=== PATIENT | female | born 1995 | race Caucasian/White ===

== ENCOUNTER 2017-10-05 20:10 | Outpatient (CLI) | payer OTHER ==
[2017-10-05 21:07] VITALS: BP 134/82; PULSE 96; RESP 15; TEMP 98.3
--- NOTE | 2017-10-06 06:22 | P.MSEPDOC ---
Presenting Problems - Arrival Data Date of Arrival on Unit: 10/05/17 Time of Arrival on Unit: 20:10 Mode of Transport: Wheelchair - Complaint OB-Reason for Admission/Chief Complaint: Possible Onset of Labor Comment: pt states contractions started at 1730 and they are 5 mins apart Medical History - Information : 1 Para: 0 Term: 0 : 0 Abortions: Spontaneous or Elective: 0 Number of Living Children: 0 - Gestational Age Gestational Age by ANANYA (wks/days): 37 Weeks and 5 Days Review of Systems - Review of Systems Constitutional: No problems Breast: No problems ENT: No problems Cardiovascular: No problems Respiratory: No problems Gastrointestinal: No problems Genitourinary: No problems Musculoskeletal: No problems Neurological: No problems Skin: No problems Vital Signs - Temperature Temperature: 98.3 F Temperature Source: Temporal Artery Scan - Pulse Pulse Oximetery Pulse Rate: 96 Pulse Assessment Method: Pulse Oximetry - Respirations Respiratory Rate: 15 Oxygen Delivery Method: Room Air O2 Sat by Pulse Oximetry: 98 - Blood Pressure Right Arm Blood Pressure: 134/82 Blood Pressure Mean: 99 Blood Pressure Source: Automatic Cuff Medical Screen Scoring (Pre) - Cervical Exam Dilation: 1-3 cm = 1 Membranes: Intact - Uterine Contractions Frequency: > 5 minutes apart = 1 Duration: N/A Intensity: N/A - Maternal Vital Signs Maternal Temperature: N/A Maternal Blood Pressure: N/A Signs of Preeclampsia: N/A Maternal Respirations: N/A - Pain Assessment Pain Location and Character: Abdomen Pain Scale Used: Numeric (1 - 10) Pain Intensity: 5 Pain Management Goal: 2 Pain Description: *Acute, Cramping Pain Radiation Location: none Pain Frequency: Intermittent Pain Duration: 5 Pain Duration Units: Hours Pain Aggravating Factors: Contractions - Maternal Trauma Maternal Trauma: N/A - Assessment Baseline FHR: 145 Heart Rate - NICHD Category: Category I (Normal) = 0 NST: Reactive Position: N/A Station: N/A - Total Score Total Score (Pre): 2 - Level of Risk Level of Risk: Low (0-5) Physician Notification (Pre) - Physician Notified Physician Notified Date: 10/05/17 Physician Notified Time: 20:59 Disposition - Disposition OB Disposition: Discharge to home Discharge Date: 10/05/17 Discharge Time: 21:07 I agree with the RN Medical Screening Exam: Yes Risk & Benefit of care provided described in d/c instruction: Yes Diagnosis: FALSE LABOR AT OR AFTER 37 COMPLETED WEEKS OF GESTATION
== END 2017-10-05 21:09 | disposition home or self-care (01) ==
LOC: FBPOP 20:10
PROVIDERS: ATTEND Obstetrics & Gynecology
DX: O47.1 False labor at or after 37 completed weeks of gestation (principal); Z3A.37 37 weeks gestation of pregnancy
CPT/HCPCS: 59025; G0463; 99213

== ENCOUNTER 2017-10-20 06:06 | Inpatient (IN) | payer OTHER ==
[2017-10-20] MEDS: LACTATED RINGERS 1,000 ML IV SCH ×2 (06:20→12:55)
[2017-10-20] MEDS ORDERED: OXYTOCIN 20 UNITS/1000 ML NS 1,000 ML IV SCH ×2 (06:21→19:30)
[2017-10-20] MEDS ORDERED: CARBOPROST TROMETHAMINE 250 MCG/ML 1 ML AMP IM PRN (06:21)
[2017-10-20] MEDS ORDERED: METHYLERGONOVINE 0.2 MG/ML 1 ML AMP IM PRN (06:21)
[2017-10-20] MEDS ORDERED: TERBUTALINE 1 MG/ML VIAL SQ PRN (06:21)
[2017-10-20] MEDS ORDERED: LIDOCAINE 1% (PF) 10 MG/ML (30 ML SDV) SQ PRN (06:21)
[2017-10-20] MEDS ORDERED: OXYTOCIN 10 UNIT/ML 1 ML VIAL IM PRN (06:21)
--- NOTE | 2017-10-20 06:34 | P.HPOB ---
History of Present Illness H&P Date: 10/20/17 Chief Complaint: Patient is requesting induction of labor. This patient is a pleasant 22-year-old 1 para 0 female estimated date of confinement 10/21/2017 estimated gestational age 39-6/7 weeks who presents to labor and delivery for requested induction of labor. Patient's has been uncomplicated but we have been following growth for large for gestational age. Most recent ultrasound was on Tuesday showed a beta be 8 lbs. 5 oz. patient's requested induction for this reasoning. Review of Systems Constitutional: Denies chills, Denies fever Gastrointestinal: Reports heartburn Genitourinary: Reports Menstruation: Reports amenorrhea Past Medical History Past Medical History: No Reported History History of Any Multi-Drug Resistant Organisms: None Reported Past Surgical History: Adenoidectomy Past Anesthesia/Blood Transfusion Reactions: No Reported Reaction Past Psychological History: No Psychological Hx Reported Smoking Status: Former smoker Past Alcohol Use History: None Reported Past Drug Use History: None Reported Medications and Allergies Home Medications Medication Instructions Recorded Confirmed Type Pnv No.95/Ferrous Fum/Folic AC 1 each PO DAILY 10/05/17 10/20/17 History [ Multivitamin Tablet] Allergies Allergy/AdvReac Type Severity Reaction Status Date / Time No Known Allergies Allergy Verified 10/20/17 06:20 Exam Intake and Output 10/19/17 10/19/17 10/20/17 14:59 22:59 06:59 Other: Weight 102.965 kg - OBG Physical Exam Abdomen: bowel sounds normal, no diffuse tenderness, no bruit present, no guarding noted, no hepatomegaly, no splenomegaly, no mass Vulva: both: normal Vagina: normal moisture, no discharge Cervix: no lesion (Cervix is 2-3 cm, thick, soft, -2 station.), no discharge Uterus: enlarged (Fundal height consistent with term gestation) Results blood work shows she is A positive, rubella immune, RPR nonreactive, hepatitis B negative, HIV nonreactive, Glucola was 137 with a normal three-hour gtt., group B strep was negative, ultrasounds on Tuesday showed the baby to be 8 lbs. 5 oz. Assessment and Plan Assessment: This is a pleasant 22-year-old 1 para 0 female 39-6/7 weeks gestation who is admitted to labor and delivery for requested induction of labor secondary to large for gestational age. Plan at this time is induction of labor and anticipate vaginal delivery. (1) Third trimester Current Visit: Yes Status: Acute Code(s): Z34.93 - ENCNTR FOR SUPRVSN OF NORMAL PREG, UNSP, THIRD TRIMESTER SNOMED Code(s): 25198213 (2) Elective induction of labor planned Current Visit: Yes Status: Acute Code(s): DGG1803 - SNOMED Code(s): 290938642
[2017-10-20 06:40] LABS: Basophils % (A) 0 %; Eosinophils # (A) 0.2 k/uL (0-0.7); Eosinophils % (A) 2 %; HCT 31.4 % (34.0-46.0); HGB 10.6 gm/dL (11.4-16.0); Lymphocytes # (A) 1.5 k/uL (1.0-4.8); Lymphocytes % (A) 16 %; MCHC 33.9 g/dL (31.0-37.0); MCV 82.7 fL (80.0-100.0); Mean Platelet Volume 7.9; Monocytes # (A) 0.4 k/uL (0-1.0); Monocytes % (A) 5 %; Neutrophils # (A) 7.2 k/uL (1.3-7.7); Neutrophils % (A) 76 %; Platelet Count 227 k/uL (150-450); RBC 3.79 m/uL (3.80-5.40); RDW 14.7 % (11.5-15.5); WBC 9.5 k/uL (3.8-10.6)
[2017-10-20 07:00] VITALS: BMI 35.5
[2017-10-20] MEDS ORDERED: fentaNYL (PF) 50 MCG/ML 5 ML AMP ONE (12:36)
[2017-10-20] MEDS ORDERED: SODIUM CHLORIDE 0.9% 100 ML BAG ONE (12:36)
[2017-10-20] MEDS ORDERED: ROPIVACAINE 5MG/ML 20ML VIAL ONE (12:36)
[2017-10-20] MEDS ORDERED: CITRIC ACID-SODIUM CITRATE 15 ML CUP PO ONE (18:10)
[2017-10-20] MEDS ORDERED: ceFAZolin IN SWFI 2 GM/20 ML SYRINGE IVP ONE (18:10)
--- NOTE | 2017-10-20 18:16 | P.PN ---
Progress Note - Text Progress Note Date: 10/20/17 heart tones are reactive. Serial cervical exams show patient is dilated to 6-7 cm but no descent of the head. Patient I discussed previous in the office that if her labor did seem to stall out a bit more the baby was not fitting properly we will proceed with section due to concern for size. At this point we are going to proceed with delivery by section. Patient I discussed her procedure and risks. All questions are answered and a written consent obtained.
[2017-10-20] MEDS ORDERED: OXYTOCIN 10 UNIT/ML 1 ML VIAL ONE (18:33)
[2017-10-20] MEDS ORDERED: HYDROmorphone (PF) 1 MG/ML ONE (18:33)
[2017-10-20] MEDS ORDERED: KETOROLAC 30 MG/ML 1 ML VIAL ONE (18:33)
[2017-10-20] MEDS ORDERED: ONDANSETRON 4 MG/2 ML VIAL ONE (18:33)
[2017-10-20] MEDS ORDERED: diphenhydrAMINE 50 MG/ML 1 ML VIAL IVP PRN ×2 (19:06→19:20)
[2017-10-20] MEDS ORDERED: NALOXONE 0.4 MG/ML 1 ML VIAL IV PRN (19:06)
[2017-10-20] MEDS ORDERED: ONDANSETRON 4 MG/2 ML VIAL IVP PRN (19:06)
[2017-10-20] MEDS ORDERED: MORPHINE SULFATE 4 MG/ML SYRINGE IVP PRN (19:06)
--- NOTE | 2017-10-20 19:19 | P.OP ---
Date of Procedure: 10/20/17 Preoperative Diagnosis: #1: 39-6/7 week . #2: Failed induction of labor/failure to descend.: #3: Large for gestational age. Postoperative Diagnosis: #1: Same. #2: Occiput posterior presentation. Procedure(s) Performed: Primary low transverse section Anesthesia: spinal Surgeon: Mario José Sulfur Chloride Operator #1: Te Rachel Estimated Blood Loss (ml): 800 Pathology: none sent Condition: stable Disposition: floor Indications for Procedure: Please see dictated H&P for intimate details of this patient's admission. Brief summary this is a pleasant 22-year-old 1 para 0 female 39-6/7 weeks gestation who is admitted to labor and delivery for induction of labor secondary to concern for large for gestational age. Patient is 2-3 cm dilated has artificial rupture membranes for clear fluid. Labor is induced with Pitocin per protocol. Patient does get an epidural for pain control. Patient does progress to approximately 6-7 cm however there is no descent past -2 station. This time she night previously discussed concern for possible macrosomia/large for gestational age at this time we plan to proceed with section for delivery. Patient does understand the surgery and risks including risks of infection, bleeding, possible injury bowel, bladder, vessels , and/or other organs. Patient understands the risk of DVT and pulmonary embolism. All the patient's questions are answered and a written consent is obtained. Operative Findings: This is a vigorous viable male Apgars 8 and 9 delivery time is 1849 hrs. was left occiput posterior presentation with a double nuchal cord. Description of Procedure: This patient has a Shrestha catheter placed to straight drain. She is subsequently taken to the operating room where her epidural is dosed up for sufficient level of surgery. At this time she has abdominal prep and drape. Scalpels then taken and a Pfannenstiel skin incision is then made. A second scalpel is taken down the fascia the fascia scored with a knife. Fascial incision extended bilaterally using the Alonzo scissors. Fascia is then dissected sharply off the rectus muscles. Rectus muscles are the peritoneum identified and entered sharply. Peritoneal incision extended superior and inferior without difficulty. Bladder blade is then placed. Bladder peritoneum was taken sharply off the lower uterine segment. Scalpels and taken low transverse uterine incision is then made. Using a hemostat I into the uterine cavity bluntly and there is loss of clear fluid. This incision is extended bluntly. 's head is thought to be left occiput posterior presentation and delivered through the incision with fundal pressure. Mouth and nares are bulb suctioned. Nuchal cord is reduced and it is 2. We then have delivery anterior posterior shoulder and rest this infant's body. This is a vigorous viable male infant Apgars are 8 and 9 delivery time is 1849 hrs. After delivery of the the umbilical cords doubly clamped and cut and appears to be trivascular. Placenta is then manually extracted intact. Uterus is then externalized and uterine incision demarcated with Amador clamps. Uterine incision then closed using 0 Vicryl running locked fashion 2 layers. Excellent hemostasis is noted. The excess fluid is removed from the abdomen and pelvis. Uterus tubes and ovaries appear normal for term gestation. This done the uterus is placed back into the abdomen. Parietal peritoneum was then closed using 0 Vicryl running fashion. Rectus muscles reapproximated Vicryl interrupted fashion. Fascia is then closed using 0 PDS. Fascial incision is intact and hemostatic. Subcutaneous tissues and closed using a 3-0 Vicryl. Skin is and closed using mackenzie. All counts are correct 3. There are no complications. and mother are stable in their birthing room.
[2017-10-20] MEDS ORDERED: METOCLOPRAMIDE 5 MG/ML 2 ML VIAL IVP PRN (19:20)
[2017-10-20] MEDS ORDERED: ACETAMINOPHEN TAB 325 MG TAB PO PRN (19:20)
[2017-10-20] MEDS ORDERED: diphenhydrAMINE 25 MG CAP PO PRN (19:20)
[2017-10-20] MEDS ORDERED: SIMETHICONE 80 MG CHEWABLE PO PRN (19:20)
[2017-10-20] MEDS: ceFAZolin IN SWFI 2 GM/20 ML SYRINGE IVP SCH (23:41)
[2017-10-21] MEDS: KETOROLAC 30 MG/ML 1 ML VIAL IVP PRN ×2 (03:37→13:27)
--- NOTE | 2017-10-21 06:12 | P.PNOBGPC ---
Subjective - Subjective Patient reports: Reports appetite normal, Reports voiding normally, Reports pain well controlled, Reports ambulating normally : doing well Objective - Vital Signs Latest vital signs: Vital Signs Temp Pulse Resp BP Pulse Ox 10/21/17 02:00 16 10/21/17 00:06 99 10/21/17 00:00 99.7 F H 94 16 123/66 99 10/20/17 22:06 16 10/20/17 21:15 95 16 139/78 10/20/17 20:45 102 H 16 136/75 10/20/17 20:15 103 H 16 149/80 99 10/20/17 20:06 17 100 10/20/17 20:00 96 15 153/72 99 10/20/17 19:45 101 H 16 123/59 10/20/17 19:30 99 16 106/49 99 10/20/17 19:15 98 F 90 16 104/51 97 10/20/17 19:06 16 99 10/20/17 06:20 97.8 F 94 16 130/83 Intake and Output 10/20/17 10/20/17 10/21/17 14:59 22:59 06:59 Output Total 1300 800 Balance -1300 -800 Output: Urine 500 800 Estimated Blood Loss 800 Other: Voiding Method Indwelling Catheter Indwelling Catheter - Exam Lungs: bilateral: normal Chest: Normal S1, Normal S2 Extremities: Present: normal Abdomen: Present: normal appearance, soft. Absent: distention, tenderness Incision: Present: normal, dry, intact Uterus: Present: normal, firm - Labs Labs: Abnormal Lab Results - Last 24 Hours (Table) 10/20/17 Range/Units 06:15 RBC 3.79 L (3.80-5.40) m/uL Hgb 10.6 L (11.4-16.0) gm/dL Hct 31.4 L (34.0-46.0) % Assessment and Plan Assessment: Post operative day #1. Patient is resting without complaints. Vital signs are stable she's afebrile. Uterus is firm nontender and her incision is intact and dry. My impression is this is a normal postoperative course. Plan is to discontinue her Shrestha catheter, advance her diet, check a CBC, encourage ambulation, allow the patient to shower. (1) Third trimester Current Visit: Yes Status: Acute Code(s): Z34.93 - ENCNTR FOR SUPRVSN OF NORMAL PREG, UNSP, THIRD TRIMESTER SNOMED Code(s): 14951263 (2) Elective induction of labor planned Current Visit: Yes Status: Acute Code(s): CFW0677 - SNOMED Code(s): 529784930
[2017-10-21 09:10] LABS: Basophils % (A) 0 %; Eosinophils # (A) 0.1 k/uL (0-0.7); Eosinophils % (A) 1 %; HCT 27.5 % (34.0-46.0); Lymphocytes # (A) 1.2 k/uL (1.0-4.8); Lymphocytes % (A) 13 %; MCH 27.6 pg (25.0-35.0); MCV 83.8 fL (80.0-100.0); Monocytes # (A) 0.4 k/uL (0-1.0); Monocytes % (A) 5 %; Neutrophils # (A) 7.7 k/uL (1.3-7.7); Neutrophils % (A) 80 %; Platelet Count 193 k/uL (150-450); RBC 3.28 m/uL (3.80-5.40); RDW 14.8 % (11.5-15.5); WBC 9.5 k/uL (3.8-10.6)
[2017-10-21 09:14] LABS: HGB 9.1 gm/dL (11.4-16.0)
[2017-10-21] MEDS: SENNOSIDES-DOCUSATE SODIUM 1 EACH TAB PO SCH ×3 (09:20→22:01)
--- NOTE | 2017-10-21 10:04 | P.PN ---
Progress Note - Text Progress Note Date: 10/21/17 Postoperative day 1 status post section under regional anesthesia, and epidural morphine given for postoperative analgesia, patient doing well, there is no anesthesia related complications, Patient had no headache, vital signs stable , Assessment and plan= postop day 1 status post , doing well there is no anesthesia related complication.
[2017-10-21] MEDS: LACTATED RINGERS 1,000 ML IV SCH ×2 (21:16→21:17)
[2017-10-21] MEDS: ceFAZolin IN SWFI 2 GM/20 ML SYRINGE IVP SCH (21:16)
[2017-10-21] MEDS: HYDROcodone/APAP 5-325MG 1 EACH TAB PO PRN (22:01)
[2017-10-22] MEDS: HYDROcodone/APAP 5-325MG 1 EACH TAB PO PRN ×2 (03:32→11:55)
[2017-10-22] MEDS: SENNOSIDES-DOCUSATE SODIUM 1 EACH TAB PO SCH (08:07)
[2017-10-22] MEDS: IBUPROFEN 600 MG TAB PO PRN ×2 (08:08)
[2017-10-22 08:28] VITALS: BP 109/64; PULSE 91; RESP 14; TEMP 98.5
--- NOTE | 2017-10-26 18:11 | P.DS ---
Providers Date of admission: 10/20/17 06:06 Expected date of discharge: 10/22/17 Attending physician: Mario José - Discharge Diagnosis(es) (1) Third trimester Status: Acute (2) Elective induction of labor planned Status: Acute Hospital Course: Please see dictated H&P for intimate details of this patient's admission. Brief summary this is a 22-year-old female admitted to labor and delivery for elective induction of labor. Patient's subsequent on have a primary low transverse section. Please see dictated operative note. Postoperative and 2 patient's felt be stable for discharge home follow up with me in 1 week. Patient Condition at Discharge: Good Plan - Discharge Summary New Discharge Prescriptions: New HYDROcodone/APAP 5-325MG [[place] 5-325] 1 each PO Q4HR PRN #18 tab PRN Reason: Moderate Pain Ibuprofen [Motrin] 600 mg PO Q6HR PRN #40 tab PRN Reason: Mild Pain Or Fever >= 100.5 No Action Pnv No.95/Ferrous Fum/Folic AC [ Multivitamin Tablet] 1 each PO DAILY Discharge Medication List Pnv No.95/Ferrous Fum/Folic AC [ Multivitamin Tablet] 1 each PO DAILY [History] HYDROcodone/APAP 5-325MG [[place] 5-325] 1 each PO Q4HR PRN #18 tab 10/22/17 [Rx] Ibuprofen [Motrin] 600 mg PO Q6HR PRN #40 tab 10/22/17 [Rx] Follow up Appointment(s)/Referral(s): Mario José MD [STAFF PHYSICIAN] - 1 Week (Please call my office to schedule appointment in approximately 1 week for an incision check.) Patient Instructions/Handouts: (DC) Activity/Diet/Wound Care/Special Instructions: No heavy lifting or strenuous activity for 6 weeks. No intercourse or anything per vagina for 6 weeks. Please call if any fever, chills, excessive vaginal bleeding, and/or abdominal pain. Discharge Disposition: HOME SELF-CARE
== END 2017-10-22 14:32 | disposition home or self-care (01) | DRG 766 ==
LOC: 4FBP 06:06
PROVIDERS: ADMIT Obstetrics & Gynecology; ATTEND Obstetrics & Gynecology
PROC: 3E0R3NZ Introduction of Analgesics, Hypnotics, Sedatives into Spinal Canal, Percutaneous Approach (ICD-10-PCS; principal; 2017-10-20 18:44)
PROC: 3E033VJ Introduction of Other Hormone into Peripheral Vein, Percutaneous Approach (ICD-10-PCS; principal; 2017-10-20 18:44)
PROC: 10907ZC Drainage of Amniotic Fluid, Therapeutic from Products of Conception, Via Natural or Artificial Opening (ICD-10-PCS; principal; 2017-10-20 18:44)
PROC: 10D00Z1 Extraction of Products of Conception, Low, Open Approach (ICD-10-PCS; principal; 2017-10-20 18:44)
PROC: 00HU33Z Insertion of Infusion Device into Spinal Canal, Percutaneous Approach (ICD-10-PCS; principal; 2017-10-20 18:44)
DX: O36.63X0 Maternal care for excessive fetal growth, third trimester, not applicable or unspecified (principal); Z37.0 Single live birth; O69.81X0 Labor and delivery complicated by cord around neck, without compression, not applicable or unspecified; O61.9 Failed induction of labor, unspecified; O32.4XX0 Maternal care for high head at term, not applicable or unspecified; Z3A.39 39 weeks gestation of pregnancy; Z87.891 Personal history of nicotine dependence
CPT/HCPCS: 85025